=== PATIENT | female | born 1985 | race Hispanic/Latino ===

== ENCOUNTER 2017-08-21 13:03 | Inpatient (IN) | payer OTHER ==
[2017-08-21] MEDS ORDERED: BUTORPHANOL 1 MG/ML INJ IV PRN (15:22)
[2017-08-21] MEDS ORDERED: PROMETHAZINE 25 MG/ML VIAL IV PRN (15:22)
[2017-08-21] MEDS ORDERED: Ringers Lactate 1,000 ML IV PRN (15:22)
[2017-08-21] MEDS ORDERED: Ringers Lactate 1,000 ML IV SCH (16:00)
[2017-08-21] MEDS ORDERED: OXYTOCIN/LR 20 UNIT/1,000 ML BAG IV SCH (16:00)
[2017-08-21 16:20] VITALS: BMI 42.7
[2017-08-21 16:21] LABS: RPR Titer ND
[2017-08-21 16:31] LABS: Absolute Lymphocytes (CBC) 1.3 K/uL (0.7-4.9); Absolute Monocytes 0.7 K/uL (0.1-1.3); Absolute Neutrophil 7.9 K/uL (1.8-8.0); Basophils % 0.3 % (0-1.3); Eosinophils % 0.5 % (0-4.4); Hematocrit 43.3 % (36.0-45.0); Lymphocytes % 12.8 % (15.3-44.8); MCH 30.2 pg (27.0-35.0); MCV 89.1 fL (80-100); MPV 11.2 fL (7.6-11.3); RBC Red Blood Cell Count 4.86 M/uL (3.86-4.86)
[2017-08-21 16:35] LABS: Urine Appearance CLOUDY; Urine Bilirubin NEGATIVE (NEG); Urine Blood 3+ (NEG); Urine Color YELLOW; Urine Glucose NEGATIVE (NEG); Urine Protein NEGATIVE (NEG)
[2017-08-21 16:45] LABS: Urine Microscopic Reflex ORDER UMIC
[2017-08-21 16:59] LABS: Urine Bacteria LOADED /HPF (<20); Urine Culture Reflex Order REFLEXED; Urine RBC <5 /HPF (NONE SEEN)
[2017-08-21] MEDS ORDERED: DOCUSATE NA/SENNA CONC 1 TAB PO PRN (20:58)
[2017-08-21] MEDS ORDERED: BISACODYL 10 MG RECTAL SUPP RECT PRN (20:58)
[2017-08-21] MEDS ORDERED: ZOLPIDEM TARTRATE 5 MG TABLET PO PRN (20:58)
[2017-08-21] MEDS ORDERED: ACETAMINOPHEN 500 MG TAB PO PRN (20:58)
[2017-08-21] MEDS ORDERED: IBUPROFEN 200 MG TAB PO PRN (20:58)
[2017-08-21] MEDS ORDERED: METHYLERGONOVINE 0.2 MG TAB PO PRN (20:58)
[2017-08-21] MEDS ORDERED: Oxycodone HCl/Acetaminophen 1 TAB TAB PO PRN ×2 (20:58)
[2017-08-21] MEDS ORDERED: ONDANSETRON 4 MG (ODT) TAB PO PRN (20:58)
[2017-08-21] MEDS ORDERED: METHYLERGONOVINE 0.2MG/ML AMP IM ONE ×2 (20:59→21:59)
[2017-08-21] MEDS ORDERED: LIDOCAINE 2% INJ, 20 mL 20 ML ONE (20:59)
--- NOTE | 2017-08-21 21:01 | P.OP ---
Date of Service: 08/21/17 Findings and Operative Technique Patient delivered a viable male in cephalic presentation on 08/30/17 at 20:41. was delivered over a midline episiotomy. Once infant was delivered nose and mouth were suctioned with a suction bulb. Cord was clamped and cut. was placed on mother's abdomen for skin to skin bonding. Attention was then turned to the placenta which was delivered with gentle traction at 8:44 p.m. placenta was examined and noted to be intact. Multiple calcifications were noted. Attention was then turned to the episiotomy which was noted to be 1st degree and was repaired with a 2 0 Vicryl in the usual fashion. Both mom and baby are doing well. Apgars were 7 and 9. Weight was found to be 8 lb 7 oz. EBL was 300 cc. 1st stage of labor was 331 min. 2nd stage was 5 min.
[2017-08-21 22:24] LABS: RPR (Rapid Plasma Reagin) NON-REACT (NON-REACT)
--- NOTE | 2017-08-22 02:13 | HP ---
Date of Admission: 08/21/2017 History Of Present Illness: Ness is a 31-year-old 3, para 0-1-1-1, who presents at 38 wee ks and 3 days gestation with mild contractions and vaginal bleeding. The patient has been experienci ng vaginal bleeding since this morning. She denies leakage of fluid and she reports movement. The patient has obtained care with sc beginning at 11 weeks gestation. She has also been f ollowing with MSM due to history of prior . During this , she has been receivi ng weekly progesterone injections up to 36 weeks gestation. Her care has been complicated b y history of and with obesity. She has been compliant with all her visits. S he received Tdap on 08/02/2017. Her last ultrasound with MFM was on June 23, 2014 which found a c ephalic presenting infant. Otherwise the ultrasound was normal. She is GBS negative, Rh positive. Her last hemoglobin and hematocrit were on August 07 and it was 14.2/41.6. Today on presentation t o labor and delivery, she is found to have irregular contractions. The heart rate monitoring s hows questionable variable decelerations. Past Medical History: Negative. Past Surgical History: Positive for vaginal delivery in 2014 at 34 weeks gestation. Family History: Noncontributory. Social History: She is . Denies tobacco, alcohol or drug use. Physical Examination: Vital Signs: On admission blood pressure is 122/74, pulse is 91, respirations 18, she is afebrile. General: In mild distress. Head and neck: Normocephalic, atraumatic. Heart: Regular rate and rhythm. Respirations: Symmetric nonlabored breathing. Abdomen: Gravid. Extremities: Bilateral lower extremities no clubbing, cyanosis, or edema. Vaginal Exam: Normal external female genitalia. Vagina is pink, moist, normal rugae. The bleeding noted in the vagina. Cervix is 3 cm dilated, 70% effaced, -2 station. Rupture of membranes performe d and fluid is noted to be blood-tinged. [place] contractions are occurring every [address] hea rt rate monitoring; baseline heart rate is 150, moderate variability, accelerations noted. David e variable decelerations noted as well. Category 2 tracing. Assessment: Ness Glass is 31-year-old, 3, para 0-1-1-1, who presents at 38 weeks and 3 d ays with questionable early placental abruption. Plan: Admit the patient. Labor augmentation has been initiated. She is GBS negative. Rh positive. Anticipate vaginal . CARLYN Voice ID: [id number]
[2017-08-22 06:17] LABS: Absolute Lymphocytes (CBC) 1.6 K/uL (0.7-4.9); Absolute Monocytes 1.2 K/uL (0.1-1.3); Absolute Neutrophil 12.9 K/uL (1.8-8.0); Basophils % 0.6 % (0-1.3); Eosinophils % 0.1 % (0-4.4); Hematocrit 43.8 % (36.0-45.0); Lymphocytes % 9.9 % (15.3-44.8); MCV 88.7 fL (80-100); MPV 10.9 fL (7.6-11.3); Monocytes % 7.9 % (3.3-12.3); RBC Red Blood Cell Count 4.93 M/uL (3.86-4.86)
[2017-08-22 21:50] VITALS: BP 136/70; TEMP 96.8
--- NOTE | 2017-08-22 23:08 | P.DS ---
Admission Date: 08/21/17 Discharge Date: 08/22/17 Disposition: ROUTINE DISCHARGE Discharge Condition: GOOD Brief History of Present Illness: See H&P Hospital Course: Patient is doing well following delivery of the infant. She is bonding well. Denies any issues. Vital Signs/Physical Exam: Temp Pulse Resp BP Pulse Ox 96.8 F 71 18 136/70 08/22/17 20:00 08/22/17 20:00 08/22/17 20:00 08/22/17 20:00 General: Alert, In no apparent distress HEENT: Atraumatic Neck: Supple Respiratory: Normal air movement Cardiovascular: Normal pulses Musculoskeletal: No clubbing Integumentary: No rashes Neurological: Normal gait, Normal speech Laboratory Data at Discharge: WBC 15.8 K/uL (4.3-10.9) H D 08/22/17 05:57 Hgb 14.8 g/dL (12.0-15.0) 08/22/17 05:57 Hct 43.8 % (36.0-45.0) 08/22/17 05:57 Plt Count 141 K/uL (152-406) L 08/22/17 05:57 Home Medications: Nifedipine [Procardia*] 10 mg PO Q6HR #30 cap 06/17/14 Iron 18 mg PO DAILY 06/23/14 Pnv with Ca,No.71/Iron/FA [ Vitamin Tablet] 1 each PO DAILY 06/23/14 Codeine/APAP [Tylenol W/Codeine #3 tab] 1 tab PO Q6HP PRN #15 tab 06/29/14 Diet: Regular Activity: No lifting more than 10 lbs Followup: Minor Jean DO [ACTIVE - CAN ADMIT] - (Follow up with Dr. Jean in 6 weeks. Call and make appointment.)
[2017-08-23 13:50] LABS: HBsAG Nonreactive (Nonreactive)
== END 2017-08-22 22:35 | disposition home or self-care (01) | DRG 775 ==
LOC: L&D 13:03 → 2ND-WC 14:32
PROVIDERS: ADMIT Student in an Organized Health Care Education/Training Program; ATTEND Student in an Organized Health Care Education/Training Program
DX: Z68.41 Body mass index [BMI] 40.0-44.9, adult; O99.214 Obesity complicating childbirth; Z3A.38 38 weeks gestation of pregnancy; Z37.0 Single live birth
CPT/HCPCS: 36415; 81003; 81015; 85025; 86592; 86901; 87086; 87088; 87340; 88307; J2210; J2590

== ENCOUNTER 2018-10-06 05:54 | Emergency (ER) | payer OTHER ==
--- OUTSIDE RECORDS SUMMARY | 2018-10-06 05:55 | XMS REPORT ---
:1985 Author Organization [employer] Care Team Providers Name Role Phone Minor Jean Provider Role Unavailable Allergies, Adverse Reactions, Alerts Substance Reaction Event Type N.K.D.A. Info Not Available Non Drug Allergy Problems Problem Type Condition Code Onset Dates Condition Status Problem Personal history of pre-term labor Z87.51 Active Assessment Encounter for routine Z39.2 Active follow-up Problem Encounter for supervision of other Z34.83 Active normal , third trimester Medications No Known Medications Results No Known Results Summary Purpose eClinicalExplain My [facility] Submission
--- OUTSIDE RECORDS SUMMARY | 2018-10-06 05:55 | XMS REPORT ---
:1985 Author Organization [employer] Care Team Providers Name Role Phone Minor Jean Provider Role Unavailable Allergies, Adverse Reactions, Alerts Substance Reaction Event Type N.K.D.A. Info Not Available Non Drug Allergy Problems Problem Type Condition Code Onset Dates Condition Status Problem Personal history of pre-term labor Z87.51 Active Assessment Encounter for insertion of Z30.430 Active intrauterine contraceptive device Problem Encounter for supervision of other Z34.83 Active normal , third trimester Assessment Contraception, device intrauterine Z97.5 Active Assessment Encounter for insertion of mirena Z30.430 Active IUD Medications No Known Medications Results Name Result Date Reference Range Unit Abnormality Flag TEST URINE ----RESULTS neg [id number] URINALYSIS AUTO W/O SCOPE (86901) ----PROTEIN neg [id number] ----pH 8.5 [id number] ----NIT neg [id number] ----SANDRINE trace [id number] ----URO 1.0 [id number] ----SPECIFIC GRAVITY 1.020 [id number] ----BLO trace [id number] ----BILIRUBIN neg [id number] ----KETONES neg [id number] ----GLUCOSE neg [id number] Summary Purpose [employer]Works Submission
--- OUTSIDE RECORDS SUMMARY | 2018-10-06 05:56 | XMS REPORT ---
:1985 Author Organization [employer] Care Team Providers Name Role Phone Minor Jean Provider Role Unavailable Allergies No Known Allergies Problems Problem Type Condition Code Onset Dates Condition Status Problem Personal history of pre-term labor Z87.51 Active Problem Encounter for supervision of other Z34.83 Active normal , third trimester Medications Medication Code System Code Instructions Start Date End Date Status Dosage Flagyl [facility] 77771796216 500 MG Orally Active 1 tablet every 12 hours Results No Known Results Summary Purpose [employer]Works Submission
--- OUTSIDE RECORDS SUMMARY | 2018-10-06 05:56 | XMS REPORT ---
:1985 Author Organization [employer] Care Team Providers Name Role Phone Minor Jean Provider Role Unavailable Allergies, Adverse Reactions, Alerts Substance Reaction Event Type N.K.D.A. Info Not Available Non Drug Allergy Problems Problem Type Condition Code Onset Dates Condition Status Assessment Other specified bacterial agents as B96.89 Active the cause of diseases classified elsewhere Assessment Acute vaginitis N76.0 Active Problem Acute vaginitis N76.0 Active Problem Encounter for routine checking of Z30.431 Active intrauterine contraceptive device (IUD) Problem Other specified bacterial agents as B96.89 Active the cause of diseases classified elsewhere Assessment Encounter for routine checking of Z30.431 Active intrauterine contraceptive device (IUD) Problem Encounter for supervision of other Z34.83 Active normal , third trimester Problem Personal history of pre-term labor Z87.51 Active Medications Medication Code System Code Instructions Start Date End Date Status Dosage Flagyl NDC 47042139168 500 MG Orally December 18, Active 1 tablet every 12 hours 2017 Flagyl NDC 77290024421 500 MG Orally Active 1 tablet every 12 hours Results No Known Results Summary Purpose [employer]Works Submission
[2018-10-06] MEDS ORDERED: ONDANSETRON 4 MG (ODT) TAB ONE (06:28)
--- NOTE | 2018-10-06 06:53 | ER ---
Nurse's Notes [facility] Name: Ness Glass Age: 32 yrs Sex: Female : 1985 Arrival Date: 10/06/2018 Time: 06:00 Bed 8 Private MD: Diagnosis: Nausea and vomiting;Diarrhea, unspecified Presentation: 10/06 06:13 Presenting complaint: Patient states: N/V/D since 2100 last night. pt c/o abd cramps. ak1 Transition of care: patient was not received from another setting of care. Onset of symptoms was October 05, 2018. Risk Assessment: Do you want to hurt yourself or someone else? Patient reports no desire to harm self or others. Initial Sepsis Screen: Does the patient meet any 2 criteria? No. Patient's initial sepsis screen is negative. Does the patient have a suspected source of infection? No. Patient's initial sepsis screen is negative. Care prior to arrival: None. 06:13 Method Of Arrival: Ambulatory ak1 06:13 Acuity: MÓNICA 4 ak1 Triage Assessment: 06:14 GI: Reports cramping, diarrhea, nausea, vomiting. 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 - Social history:: Smoking status: Patient/guardian denies using tobacco. - Ebola Screening: : No symptoms or risks identified at this time. Screenin:58 Abuse screen: Denies threats or abuse. Nutritional screening: No deficits noted. jd3 Tuberculosis screening: No symptoms or risk factors identified. Fall Risk Ambulatory Aid- None/Bed Rest/Nurse Assist (0 pts). Gait- Normal/Bed Rest/Wheelchair (0 pts) Mental Status- Oriented to own ability (0 pts). Total [place] Fall Scale indicates No Risk (0-24 pts). Assessment: 06:10 General: Appears in no apparent distress. uncomfortable, Behavior is calm, cooperative, jd3 appropriate for age. Pain: Complains of pain in abdomen Quality of pain is described as aching. Neuro: Level of Consciousness is awake, alert, obeys commands, Oriented to person, place, time, situation, Appropriate for age. Cardiovascular: Capillary refill < 3 seconds Patient's skin is warm and dry. Respiratory: Airway is patent Respiratory effort is even, unlabored, Respiratory pattern is regular, symmetrical. GI: Abdomen is round non-distended, Reports diarrhea, vomiting. : No signs and/or symptoms were reported regarding the genitourinary system. EENT: No signs and/or symptoms were reported regarding the EENT system. Derm: Skin is intact, Skin is dry, Skin is normal, Skin temperature is warm. Musculoskeletal: Circulation, motion, and sensation intact. Range of motion: intact in all extremities. 06:58 Reassessment: Patient appears in no apparent distress at this time. Patient and/or jd3 family updated on plan of care and expected duration. Pain level reassessed. Patient is alert, oriented x 3, equal unlabored respirations, skin warm/dry/pink. pt tolerating PO fluids. Vital Signs: 06:12 Temp 99.3(O); Weight 104.33 kg (R); Height 5 ft. 6 in. (167.64 cm); Pain 0/10; ak1 06:12 BP 113 / 70; Pulse 99; Resp 17 S; Pulse Ox 98% on R/A; jd3 06:12 Body Mass Index 37.12 (104.33 kg, 167.64 cm) ak1 ED Course: 06:00 Patient arrived in ED. am2 06:02 [facility]C [facility] kb 06:02 Mata Oates MD is Attending Physician. kb 06:12 Dru Haley RN is Primary Nurse. jd3 06:12 Arm band placed on Patient placed in a hallway bed, on a stretcher, on pulse oximetry, ak1 Patient notified of wait time. 06:14 Triage completed. ak1 06:59 Patient has correct armband on for positive identification. Bed in low position. Call jd3 light in reach. Side rails up X 1. Adult w/ patient. 06:59 No provider procedures requiring assistance completed. Patient did not have IV access jd3 during this emergency room visit. Administered Medications: 06:18 Drug: Zofran 4 mg Route: PO; jd3 07:03 Follow up: Response: No adverse reaction jd3 Outcome: 06:52 Discharge ordered by . trang 07:03 Discharged to home ambulatory, with family. jd3 07:03 Condition: stable 07:03 Discharge instructions given to patient, family, Instructed on discharge instructions, follow up and referral plans. medication usage, Demonstrated understanding of instructions, follow-up care, medications, Prescriptions given X 1. 07:04 Patient left the ED. jd3 Signatures: Caitlyn Harkins, CAR-Darvin YOON-Sharon Cheung RN RN ak1 Yanira Leo am2 Dru Haley RN RN jd3 Corrections: (The following items were deleted from the chart) 06:58 06:58 Reassessment: Patient appears in no apparent distress at this time. Patient jd3 and/or family updated on plan of care and expected duration. Pain level reassessed. Patient is alert, oriented x 3, equal unlabored respirations, skin warm/dry/pink. jd3
--- NOTE | 2018-10-06 06:53 | EDPHYS ---
Physician Documentation [facility] Name: Ness Glass Age: 32 yrs Sex: Female : 1985 Arrival Date: 10/06/2018 Time: 06:00 Bed 8 Private MD: ED Physician Mata Oates HPI: 10/06 06:39 This 32 yrs old Female presents to ER via Ambulatory with complaints of kb Vomiting/Diarrhea. 06:39 The patient presents to the emergency department with nausea, vomiting, diarrhea, kb abdominal pain, described as crampy, intermittent. Onset: The symptoms/episode began/occurred last night. Possible causes: unknown. The symptoms are aggravated by nothing. The symptoms are alleviated by nothing. Associated signs and symptoms: Pertinent positives: abdominal pain, diarrhea, nausea, vomiting, Pertinent negatives: fever. Severity of symptoms: At their worst the symptoms were moderate in the emergency department the symptoms are unchanged. The patient has not experienced similar symptoms in the past, but family has similar symptoms. The patient has not recently seen a physician. Pt states she started having n/v/d last night at 2100. States she has abd cramps when she vomits or has diarrhea. no pain or cramps at this time. Denies fever. 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 - Social history:: Smoking status: Patient/guardian denies using tobacco. - Ebola Screening: : No symptoms or risks identified at this time. ROS: 06:39 Constitutional: Negative for fever, chills, and weight loss, Cardiovascular: Negative kb for chest pain, palpitations, and edema, Respiratory: Negative for shortness of breath, cough, wheezing, and pleuritic chest pain, Back: Negative for injury and pain, MS/Extremity: Negative for injury and deformity, Skin: Negative for injury, rash, and discoloration, Neuro: Negative for headache, weakness, numbness, tingling, and seizure. 06:39 Abdomen/GI: Positive for nausea, vomiting, and diarrhea, abdominal cramps. Exam: 06:39 Constitutional: This is a well developed, well nourished patient who is awake, alert, kb and in no acute distress. Head/Face: Normocephalic, atraumatic. ENT: Nares patent. No nasal discharge, no septal abnormalities noted. Tympanic membranes are normal and external auditory canals are clear. Oropharynx with no redness, swelling, or masses, exudates, or evidence of obstruction, uvula midline. Mucous membranes moist. Neck: Trachea midline, no thyromegaly or masses palpated, and no cervical lymphadenopathy. Supple, full range of motion without nuchal rigidity, or vertebral point tenderness. No Meningismus. Chest/axilla: Normal chest wall appearance and motion. Nontender with no deformity. No lesions are appreciated. Cardiovascular: Regular rate and rhythm with a normal S1 and S2. No gallops, murmurs, or rubs. Normal PMI, no JVD. No pulse deficits. Respiratory: Lungs have equal breath sounds bilaterally, clear to auscultation and percussion. No rales, rhonchi or wheezes noted. No increased work of breathing, no retractions or nasal flaring. Abdomen/GI: Soft, non-tender, with normal bowel sounds. No distension or tympany. No guarding or rebound. No evidence of tenderness throughout. Skin: Warm, dry with normal turgor. Normal color with no rashes, no lesions, and no evidence of cellulitis. MS/ Extremity: Pulses equal, no cyanosis. Neurovascular intact. Full, normal range of motion. Neuro: Awake and alert, GCS 15, oriented to person, place, time, and situation. Cranial nerves II-XII grossly intact. Motor strength 5/5 in all extremities. Sensory grossly intact. Cerebellar exam normal. Normal gait. Vital Signs: 06:12 Temp 99.3(O); Weight 104.33 kg (R); Height 5 ft. 6 in. (167.64 cm); Pain 0/10; ak1 06:12 BP 113 / 70; Pulse 99; Resp 17 S; Pulse Ox 98% on R/A; jd3 06:12 Body Mass Index 37.12 (104.33 kg, 167.64 cm) ak1 MDM: 06:04 Patient medically screened. kb 06:39 Data reviewed: vital signs, nurses notes. Data interpreted: Pulse oximetry: on room air kb is 98 %. Interpretation: normal. 06:52 Counseling: I had a detailed discussion with the patient and/or guardian regarding: the kb historical points, exam findings, and any diagnostic results supporting the discharge/admit diagnosis, the need for outpatient follow up, a family practitioner, to return to the emergency department if symptoms worsen or persist or if there are any questions or concerns that arise at home. ED course: Tolerating PO intake. 10/06 06:11 Order name: PO challenge; Complete Time: 06:50 kb Administered Medications: 06:18 Drug: Zofran 4 mg Route: PO; jd3 07:03 Follow up: Response: No adverse reaction jd3 Disposition: 10/06/18 06:52 Discharged to Home. Impression: Nausea and vomiting, Diarrhea, unspecified. - Condition is Stable. - Discharge Instructions: Food Choices to Help Relieve Diarrhea, Adult, Viral Gastroenteritis, Adult, [id number]. - Prescriptions for Zofran 4 mg Oral Tablet - take 1 tablet by ORAL route every 6 hours As needed; 20 tablet. - Medication Reconciliation Form, Thank You Letter, Antibiotic Education, Prescription Opioid Use form. - Follow up: Emergency Department; When: As needed; Reason: Worsening of condition. Follow up: Private Physician; When: 2 - 3 days; Reason: Recheck today's complaints, Continuance of care, Re-evaluation by your physician. Addendum: 10/09/2018 11:10 Co-signature as Attending Physician, Mata Oates MD I agree with the assessment and c medina plan of care. Signatures: Caitlyn Harkins, INDEXER-C INDEXER-Ckb Mata Oates MD MD cha Krenek, Amber, RN RN ak1 Dru Haley RN RN jd3 Corrections: (The following items were deleted from the chart) 10/06 07:04 06:52 10/06/2018 06:52 Discharged to Home. Impression: Nausea and vomiting; Diarrhea, jd3 unspecified. Condition is Stable. Discharge Instructions: Food Choices to Help Relieve Diarrhea, Adult, Viral Gastroenteritis, Adult, [id number]. Prescriptions for Zofran 4 mg Oral Tablet - take 1 tablet by ORAL route every 6 hours As needed; 20 tablet. and Forms are Medication Reconciliation Form, Thank You Letter, Antibiotic Education, Prescription Opioid Use. Follow up: Emergency Department; When: As needed; Reason: Worsening of condition. Follow up: Private Physician; When: 2 - 3 days; Reason: Recheck today's complaints, Continuance of care, Re-evaluation by your physician. kb
[2018-10-06 10:15] VITALS: BP 113/70; TEMP 99.3; O2SAT 98
== END 2018-10-06 07:04 | disposition home or self-care (01) ==
LOC: ER 05:54
DX: R11.2 Nausea with vomiting, unspecified (principal); R19.7 Diarrhea, unspecified
CPT/HCPCS: 99283